=== PATIENT | male | born 1960 | race Caucasian/White ===

== ENCOUNTER 2018-06-06 01:27 | Inpatient (IN) | payer OTHER, MEDICAID ==
[~2018-06-06] VITALS: Ht 172.7 cm; Wt 83.5 kg
[2018-06-06] MEDS ORDERED: BACITRACIN ZINC OINT UDPKT TOP ONE (08:30)
[2018-06-06] MEDS ORDERED: SODIUM CHLORIDE 0.9% 1000ML BAG (SEPSIS BOLUS) IV ONE (08:45)
[2018-06-06 08:48] LABS: HEMATOCRIT. 31.1 % (42.0-52.0); HEMOGLOBIN. 10.1 g/dL (14.0-18.0); MEAN CORPUSCULAR VOLUME 83.2 fL (80.0-94.0); MEAN PLATELET VOLUME 6.1 fl (7.4-10.4); PLATELET 597 x1000/uL (130-400); RED BLOOD CELL COUNT 3.74 mill/uL (4.7-6.1); RED CELL DISTRIBUTION WIDTH 15.3 % (11.6-14.6)
[2018-06-06 08:55] LABS: CHLORIDE 112 mEq/L (98-107)
[2018-06-06 08:56] LABS: INR 1.2
[2018-06-06 09:20] LABS: PLATELET ESTIMATE INCREASED
[2018-06-06 10:44] LABS: CLARITY URINE CLEAR (CLEAR); COLOR URINE YELLOW (YELLOW); KETONES URINE TRACE (NEGATIVE); LEUKOCYTE ESTERASE URINE NEGATIVE (NEGATIVE); NITRITE URINE NEGATIVE (NEGATIVE); OCCULT BLOOD URINE NEGATIVE (NEGATIVE); PH URINE 5.5 (4.5-8.0); PROTEIN URINE NEGATIVE (NEGATIVE); SPECIFIC GRAVITY URINE 1.018 (1.005-1.030)
[2018-06-06] MEDS: VANCOMYCIN 1 G PREMIX 200 ML IV SCH ×2 (10:53→15:00)
[2018-06-06] MEDS ORDERED: METRONIDAZOLE 500 MG PREMIX 100 ML IV ONE (11:15)
[2018-06-06] MEDS ORDERED: GENTAMICIN 80MG PREMIX 100 ML IV ONE (11:15)
[2018-06-06] MEDS ORDERED: DEXTROSE 50% WATER 50ML SYRINGE IV PRN ×2 (13:30)
[2018-06-06] MEDS ORDERED: SODIUM CHLORIDE 0.9% 1,000 ML IV SCH (13:30)
[2018-06-06] MEDS ORDERED: ONDANSETRON HCL 4MG/2ML INJ IV PRN (13:30)
[2018-06-06] MEDS ORDERED: CLONIDINE 0.1MG TABLET PO PRN (13:30)
[2018-06-06] MEDS ORDERED: MAGNESIUM/ALUMINUM HYDROXIDE/SIMETHICONE 30ML UDC PO PRN (13:30)
[2018-06-06] MEDS ORDERED: ACETAMINOPHEN 325MG TABLET PO PRN (13:30)
[2018-06-06] MEDS ORDERED: HYDROCODONE/ACETAMINOPHEN 5/325MG TABLET PO PRN (13:30)
[2018-06-06 14:24] LABS: CREATINE KINASE 569 IU/L (39-308)
[2018-06-06] MEDS: BLOOD SUGAR DIAGNOSTIC STRIP TEST SCH ×2 (17:10→21:00)
[2018-06-06] MEDS: SODIUM CHLORIDE 0.45% 1,000 ML IV SCH (18:04)
[2018-06-06 18:09] VITALS: BP 148/86
[2018-06-06 18:47] VITALS: BP 140/86
[2018-06-06 20:00] VITALS: BP 146/71
[2018-06-06] MEDS: VANCOMYCIN 1250MG in DEXTROSE 5% WATER 250ML IV SCH (20:48)
[2018-06-06] MEDS ORDERED: PIPERACILLIN/TAZOBACTAM 3.375GM/50ML PREMIX IV ONE (22:45)
[2018-06-06 23:12] LABS: BG BASE EXCESS -0.9 mmol/L (-2.0-2.0); BG CARBOXYHEMOGLOBIN 0.3 % (0.5-1.5); BG DEOXYHEMOGLOBIN 6.6 % (0.0-5.0); BG FRACTION INSPIRED OXYGEN 32; BG HCO3 ACT 22.6 mmol/L (22.0-26.0); BG METHEMOGLOBIN 0.2 % (0.0-1.5); BG OXYGEN SATURATION 93.4 % (92.0-98.5); BG OXYHEMOGLOBIN 92.9 % (94.0-97.0); BG PCO2 33.4 mmHg (35.0-45.0); BG PH 7.449 (7.350-7.450); BG SAMPLE SITE LEFT RADIAL; BG TOTAL HEMOGLOBIN 10.2 g/dL (12.0-18.0); BG VENT MODE NASAL CANNULA
[2018-06-07] VITALS (82 sets, daily range): BP systolic 71–215; BP diastolic 29–135
[2018-06-07] MEDS ORDERED: PIPERACILLIN/TAZ 3.375G PREMIX 50 ML IV SCH
[2018-06-07 00:40] LABS: CREATINE KINASE 389 IU/L (39-308)
[2018-06-07] MEDS: DIPHENHYDRAMINE 25MG CAPSULE PO PRN ×2 (05:04→15:10)
[2018-06-07 06:51] LABS: BG BASE EXCESS -6.3 mmol/L (-2.0-2.0); BG CARBOXYHEMOGLOBIN 0.3 % (0.5-1.5); BG DEOXYHEMOGLOBIN 8.4 % (0.0-5.0); BG FRACTION INSPIRED OXYGEN 100; BG HCO3 ACT 22.3 mmol/L (22.0-26.0); BG METHEMOGLOBIN 0.2 % (0.0-1.5); BG OXYGEN SATURATION 91.6 % (92.0-98.5); BG OXYHEMOGLOBIN 91.1 % (94.0-97.0); BG PCO2 59.4 mmHg (35.0-45.0); BG PH 7.192 (7.350-7.450); BG SAMPLE SITE LEFT RADIAL; BG TOTAL HEMOGLOBIN 11.2 g/dL (12.0-18.0); BG VENT MODE MASK - NRB
[2018-06-07 07:01] LABS: BASOPHILS % 0.2 % (0.0-2.0); EOSINOPHILS % 12.3 % (0.0-5.0); HEMOGLOBIN. 10.3 g/dL (14.0-18.0); LYMPHOCYTES % 9.6 % (20.0-50.0); MEAN CORPUSCULAR HEMOGLOBIN 27.3 pg (28.0-32.0); MEAN PLATELET VOLUME 6.3 fl (7.4-10.4); MONOCYTES % 7.8 % (2.0-8.0); NEUTROPHILS % 70.1 % (40.0-76.0); PLATELET 633 x1000/uL (130-400); RED BLOOD CELL COUNT 3.77 mill/uL (4.7-6.1); RED CELL DISTRIBUTION WIDTH 15.6 % (11.6-14.6)
[2018-06-07] MEDS: BLOOD SUGAR DIAGNOSTIC STRIP TEST SCH ×4 (07:10→17:33)
[2018-06-07] MEDS ORDERED: INSULIN LISPRO 100 UNITS/ML SUBCUT SCH (07:40)
[2018-06-07] MEDS ORDERED: ETOMIDATE 2MG/ML 10ML VIAL IV ONE (08:15)
[2018-06-07] MEDS ORDERED: SODIUM CHLORIDE 0.9% 10ML VIAL ONE (08:15)
[2018-06-07] MEDS ORDERED: SUCCINYLCHOLINE CHLORIDE 200MG/10ML IV ONE (08:15)
[2018-06-07] MEDS ORDERED: VECURONIUM BROMIDE 10 MG/VIAL IV ONE (08:15)
[2018-06-07] MEDS ORDERED: IPRATROPIUM/ALBUTEROL 0.5-3(2.5)MG/3ML NEB HHN PRN (08:30)
[2018-06-07] MEDS: SODIUM CHLORIDE 0.45% 1,000 ML IV SCH ×2 (08:34→21:47)
[2018-06-07] MEDS ORDERED: METOPROLOL TARTRATE 5MG/5ML VIAL IV NR (08:38)
[2018-06-07] MEDS: PANTOPRAZOLE SODIUM 40 MG/VIAL IV SCH (09:09)
[2018-06-07] MEDS: PROPOFOL 10MG/ML 100ML 100 ML IV PRN ×4 (09:12→23:01)
[2018-06-07 09:18] LABS: CHLORIDE 113 mEq/L (98-107); PHOSPHORUS 4.3 mg/dL (2.5-4.9)
[2018-06-07 09:26] LABS: BG BASE EXCESS -7.1 mmol/L (-2.0-2.0); BG CARBOXYHEMOGLOBIN 0.2 % (0.5-1.5); BG DEOXYHEMOGLOBIN 8.2 % (0.0-5.0); BG FRACTION INSPIRED OXYGEN 100; BG HCO3 ACT 20.8 mmol/L (22.0-26.0); BG METHEMOGLOBIN 0.3 % (0.0-1.5); BG OXYGEN SATURATION 91.8 % (92.0-98.5); BG OXYHEMOGLOBIN 91.3 % (94.0-97.0); BG PCO2 52.8 mmHg (35.0-45.0); BG PEEP (cmH2O) 0 cmH2O; BG PH 7.214 (7.350-7.450); BG SAMPLE SITE RIGHT RADIAL; BG TIDAL VOLUME(mL) 550 mL; BG TOTAL HEMOGLOBIN 11.2 g/dL (12.0-18.0); BG VENT MODE VENT - A/C; BG VENT RATE 16 set
[2018-06-07] MEDS ORDERED: FUROSEMIDE 40MG/4ML VIAL IVP NR (09:30)
[2018-06-07] MEDS ORDERED: ENOXAPARIN 30MG/0.3ML SYR SUBCUT SCH (09:45)
[2018-06-07 09:55] LABS: METHADONE URINE SCREEN NEGATIVE (NEGATIVE)
[2018-06-07 09:56] LABS: *AMPHETAMINES SCREEN URINE NEGATIVE (NEGATIVE); *BARBITURATES SCREEN URINE NEGATIVE (NEGATIVE); CANNABINOID URINE SCREEN NEGATIVE (NEGATIVE); OPIATES URINE SCREEN NEGATIVE (NEGATIVE); PHENCYCLIDINE URINE SCREEN NEGATIVE (NEGATIVE)
[2018-06-07 09:57] LABS: *BENZODIAZEPINES SCREEN URINE NEGATIVE (NEGATIVE); *COCAINE SCREEN URINE NEGATIVE (NEGATIVE)
[2018-06-07] MEDS: VANCOMYCIN 1250MG in DEXTROSE 5% WATER 250ML IV SCH ×2 (10:43→21:46)
[2018-06-07] MEDS: IPRATROPIUM/ALBUTEROL 0.5-3(2.5)MG/3ML NEB HHN SCH ×3 (11:38→20:48)
[2018-06-07] MEDS: INSULIN LISPRO 100 UNITS/ML SUBCUT SCH ×2 (12:00→17:45)
[2018-06-07] MEDS ORDERED: ENOXAPARIN 100MG/ML SYR SUBCUT SCH ×2 (12:00→21:00)
[2018-06-07] MEDS ORDERED: ENOXAPARIN 80MG/0.8ML SYR SUBCUT NR (12:30)
[2018-06-07] MEDS: LOSARTAN POTASSIUM 50 MG TABLET PO SCH (12:38)
[2018-06-07] MEDS: AMLODIPINE 5MG TABLET PO SCH ×2 (12:39→21:46)
[2018-06-07] MEDS: HYDRALAZINE HCL 25MG TABLET PO SCH ×2 (13:40→21:47)
[2018-06-07] MEDS: AZITHROMYCIN 500 MG TABLET PO SCH (15:10)
[2018-06-07] MEDS ORDERED: IOHEXOL-350 100 ML BOTTLE ONE (15:56)
[2018-06-07] MEDS ORDERED: PERMETHRIN 5% CREAM 60GM TOP NR (16:00)
[2018-06-07] MEDS: PIPERACILLIN/TAZ 3.375G PREMIX 50 ML IV SCH (17:34)
[2018-06-08] VITALS (41 sets, daily range): BP systolic 83–130; BP diastolic 45–89
[2018-06-08] MEDS: IPRATROPIUM/ALBUTEROL 0.5-3(2.5)MG/3ML NEB HHN SCH ×7 (00:29→23:51)
[2018-06-08] MEDS: BLOOD SUGAR DIAGNOSTIC STRIP TEST SCH ×5 (00:31→18:00)
[2018-06-08] MEDS: PIPERACILLIN/TAZ 3.375G PREMIX 50 ML IV SCH ×4 (00:32→19:01)
[2018-06-08 05:31] LABS: CHLORIDE 113 mEq/L (98-107)
[2018-06-08 05:32] LABS: BASOPHILS % 0.3 % (0.0-2.0); EOSINOPHILS % 10.1 % (0.0-5.0); HEMATOCRIT. 28.6 % (42.0-52.0); HEMOGLOBIN. 9.2 g/dL (14.0-18.0); LYMPHOCYTES % 8.9 % (20.0-50.0); MEAN CORPUSCULAR HEMOGLOBIN 26.9 pg (28.0-32.0); MEAN CORPUSCULAR VOLUME 83.6 fL (80.0-94.0); MEAN PLATELET VOLUME 6.4 fl (7.4-10.4); MONOCYTES % 5.8 % (2.0-8.0); NEUTROPHILS % 74.9 % (40.0-76.0); PLATELET 521 x1000/uL (130-400); RED BLOOD CELL COUNT 3.42 mill/uL (4.7-6.1); RED CELL DISTRIBUTION WIDTH 15.5 % (11.6-14.6)
[2018-06-08] MEDS: PROPOFOL 10MG/ML 100ML 100 ML IV PRN (05:38)
[2018-06-08] MEDS: INSULIN LISPRO 100 UNITS/ML SUBCUT SCH ×3 (05:39→12:00)
[2018-06-08] MEDS: HYDRALAZINE HCL 25MG TABLET PO SCH ×3 (05:39→21:30)
[2018-06-08 07:24] LABS: HEPATITIS B SURFACE ANTIGEN NEGATIVE
[2018-06-08 08:51] LABS: BG CARBOXYHEMOGLOBIN 0.3 % (0.5-1.5); BG DEOXYHEMOGLOBIN 4.8 % (0.0-5.0); BG FRACTION INSPIRED OXYGEN 60; BG HCO3 ACT 26.5 mmol/L (22.0-26.0); BG METHEMOGLOBIN 0.1 % (0.0-1.5); BG OXYGEN SATURATION 95.2 % (92.0-98.5); BG OXYHEMOGLOBIN 94.8 % (94.0-97.0); BG PCO2 40.6 mmHg (35.0-45.0); BG PH 7.432 (7.350-7.450); BG PO2 77.3 mmHg (75.0-100.0); BG SAMPLE SITE RIGHT RADIAL; BG TIDAL VOLUME(mL) 550 mL; BG TOTAL HEMOGLOBIN 9.5 g/dL (12.0-18.0); BG VENT MODE VENT - A/C; BG VENT RATE 20 set
[2018-06-08] MEDS: AMLODIPINE 5MG TABLET PO SCH ×2 (09:00→21:30)
[2018-06-08] MEDS: LOSARTAN POTASSIUM 50 MG TABLET PO SCH (09:00)
[2018-06-08] MEDS: ENOXAPARIN 30MG/0.3ML SYR SUBCUT SCH ×2 (10:00→21:28)
[2018-06-08] MEDS: MIDAZOLAM HCL 50 MG in DEXTROSE 5% WATER 40 ML IV PRN ×2 (10:40→21:05)
[2018-06-08] MEDS: FENTANYL CITRATE/PF 500 MCG in SODIUM CHLORIDE 0.9% 40 ML IV PRN (10:42)
[2018-06-08] MEDS: PANTOPRAZOLE SODIUM 40 MG/VIAL IV SCH (10:43)
[2018-06-08] MEDS: AZITHROMYCIN 500 MG TABLET PO SCH (10:43)
[2018-06-08] MEDS: VANCOMYCIN 1250MG in DEXTROSE 5% WATER 250ML IV SCH ×2 (11:28→21:30)
[2018-06-09] VITALS (80 sets, daily range): BP systolic 75–146; BP diastolic 36–90
[2018-06-09] MEDS: BLOOD SUGAR DIAGNOSTIC STRIP TEST SCH ×4 (00:08→18:00)
[2018-06-09] MEDS: PIPERACILLIN/TAZ 3.375G PREMIX 50 ML IV SCH ×4 (00:15→18:14)
[2018-06-09] MEDS: FENTANYL CITRATE/PF 500 MCG in SODIUM CHLORIDE 0.9% 40 ML IV PRN ×3 (00:22→21:20)
[2018-06-09] MEDS: IPRATROPIUM/ALBUTEROL 0.5-3(2.5)MG/3ML NEB HHN SCH ×5 (03:59→20:14)
[2018-06-09] MEDS: HYDRALAZINE HCL 25MG TABLET PO SCH ×3 (06:00→22:00)
[2018-06-09] MEDS: INSULIN LISPRO 100 UNITS/ML SUBCUT SCH ×4 (06:00→18:00)
[2018-06-09 07:47] LABS: BG BASE EXCESS -0.2 mmol/L (-2.0-2.0); BG CARBOXYHEMOGLOBIN 0.3 % (0.5-1.5); BG DEOXYHEMOGLOBIN 1.9 % (0.0-5.0); BG FRACTION INSPIRED OXYGEN 60; BG HCO3 ACT 24.4 mmol/L (22.0-26.0); BG METHEMOGLOBIN 0.3 % (0.0-1.5); BG OXYGEN SATURATION 98.1 % (92.0-98.5); BG OXYHEMOGLOBIN 97.5 % (94.0-97.0); BG PH 7.404 (7.350-7.450); BG PO2 120.4 mmHg (75.0-100.0); BG SAMPLE SITE RIGHT RADIAL; BG TIDAL VOLUME(mL) 550 mL; BG TOTAL HEMOGLOBIN 10.1 g/dL (12.0-18.0); BG VENT MODE VENT - A/C; BG VENT RATE 20 set
[2018-06-09 09:06] LABS: HIV SCREEN 4G Non Reactive (Non Reactive)
[2018-06-09 09:11] LABS: BASOPHILS % 0.3 % (0.0-2.0); EOSINOPHILS % 14.5 % (0.0-5.0); HEMATOCRIT. 27.9 % (42.0-52.0); HEMOGLOBIN. 9.1 g/dL (14.0-18.0); LYMPHOCYTES % 9.9 % (20.0-50.0); MEAN CORPUSCULAR HEMOGLOBIN 27.3 pg (28.0-32.0); MEAN CORPUSCULAR VOLUME 83.9 fL (80.0-94.0); MEAN PLATELET VOLUME 6.9 fl (7.4-10.4); MONOCYTES % 7.1 % (2.0-8.0); NEUTROPHILS % 68.2 % (40.0-76.0); PLATELET 549 x1000/uL (130-400); RED BLOOD CELL COUNT 3.32 mill/uL (4.7-6.1); RED CELL DISTRIBUTION WIDTH 15.8 % (11.6-14.6)
[2018-06-09 09:24] LABS: CHLORIDE 114 mEq/L (98-107)
[2018-06-09] MEDS: PANTOPRAZOLE SODIUM 40 MG/VIAL IV SCH (09:49)
[2018-06-09] MEDS: AZITHROMYCIN 500 MG TABLET PO SCH (09:50)
[2018-06-09] MEDS: LOSARTAN POTASSIUM 50 MG TABLET PO SCH (09:50)
[2018-06-09] MEDS: AMLODIPINE 5MG TABLET PO SCH ×2 (09:50→21:00)
[2018-06-09] MEDS: ENOXAPARIN 30MG/0.3ML SYR SUBCUT SCH ×2 (09:51→22:09)
[2018-06-09] MEDS: VANCOMYCIN 1250MG in DEXTROSE 5% WATER 250ML IV SCH (09:54)
[2018-06-09] MEDS: MIDAZOLAM HCL 50 MG in DEXTROSE 5% WATER 40 ML IV PRN ×2 (12:10→21:19)
[2018-06-09] MEDS: PANTOT AC/MIN OIL/PET HY-PHL OINT (AQUAPHOR) TOP SCH (13:15)
[2018-06-09 15:10] LABS: ANTI-NUCLEAR ANTIBODIES DIRECT Negative (Negative)
[2018-06-10] VITALS (67 sets, daily range): BP systolic 95–174; BP diastolic 45–83
[2018-06-10] MEDS: BLOOD SUGAR DIAGNOSTIC STRIP TEST SCH ×4 (00:28→17:19)
[2018-06-10] MEDS: PIPERACILLIN/TAZ 3.375G PREMIX 50 ML IV SCH ×5 (00:37→23:45)
[2018-06-10] MEDS: IPRATROPIUM/ALBUTEROL 0.5-3(2.5)MG/3ML NEB HHN SCH ×7 (00:51→23:45)
[2018-06-10] MEDS: MIDAZOLAM HCL 50 MG in DEXTROSE 5% WATER 40 ML IV PRN ×4 (03:49→17:20)
[2018-06-10 05:38] LABS: HEMATOCRIT. 30.4 % (42.0-52.0); HEMOGLOBIN. 9.6 g/dL (14.0-18.0); MEAN CORPUSCULAR HEMOGLOBIN 26.8 pg (28.0-32.0); MEAN CORPUSCULAR VOLUME 84.4 fL (80.0-94.0); MEAN PLATELET VOLUME 7.1 fl (7.4-10.4); PLATELET 528 x1000/uL (130-400); RED CELL DISTRIBUTION WIDTH 15.8 % (11.6-14.6)
[2018-06-10 05:44] LABS: CHLORIDE 115 mEq/L (98-107)
[2018-06-10] MEDS: INSULIN LISPRO 100 UNITS/ML SUBCUT SCH ×4 (06:00→17:19)
[2018-06-10] MEDS: HYDRALAZINE HCL 25MG TABLET PO SCH ×3 (06:00→21:35)
[2018-06-10] MEDS: FENTANYL CITRATE/PF 500 MCG in SODIUM CHLORIDE 0.9% 40 ML IV PRN ×3 (06:43→23:00)
[2018-06-10] MEDS: PANTOPRAZOLE SODIUM 40 MG/VIAL IV SCH (08:58)
[2018-06-10] MEDS: AMLODIPINE 5MG TABLET PO SCH ×2 (08:58→21:00)
[2018-06-10] MEDS: AZITHROMYCIN 500 MG TABLET PO SCH (08:58)
[2018-06-10] MEDS: LOSARTAN POTASSIUM 50 MG TABLET PO SCH (08:58)
[2018-06-10] MEDS: ENOXAPARIN 30MG/0.3ML SYR SUBCUT SCH (08:58)
[2018-06-10] MEDS: PANTOT AC/MIN OIL/PET HY-PHL OINT (AQUAPHOR) TOP SCH (08:59)
[2018-06-10 09:06] LABS: BG BASE EXCESS 0.5 mmol/L (-2.0-2.0); BG CARBOXYHEMOGLOBIN 0.3 % (0.5-1.5); BG DEOXYHEMOGLOBIN 3.9 % (0.0-5.0); BG FRACTION INSPIRED OXYGEN 60; BG METHEMOGLOBIN 0.3 % (0.0-1.5); BG OXYGEN SATURATION 96.1 % (92.0-98.5); BG OXYHEMOGLOBIN 95.5 % (94.0-97.0); BG PCO2 39.9 mmHg (35.0-45.0); BG PH 7.415 (7.350-7.450); BG PO2 84.4 mmHg (75.0-100.0); BG SAMPLE SITE RIGHT RADIAL; BG TIDAL VOLUME(mL) 550 mL; BG TOTAL HEMOGLOBIN 9.9 g/dL (12.0-18.0); BG VENT MODE VENT - A/C; BG VENT RATE 18 set
[2018-06-10 10:14] LABS: NUCLEATED RED BLOOD CELLS 1 /100 WBC
[2018-06-10 10:15] LABS: PLATELET ESTIMATE INCREASED
[2018-06-10 17:09] LABS: ANTI-MYELOPEROXIDASE AB < 9.0 U/mL (0.0-9.0); ANTI-PROTEINASE 3 ABS < 3.5 U/mL (0.0-3.5)
[2018-06-11] VITALS (65 sets, daily range): BP systolic 97–124; BP diastolic 47–80
[2018-06-11] MEDS: MIDAZOLAM HCL 50 MG in DEXTROSE 5% WATER 40 ML IV PRN ×5 (01:11→22:34)
[2018-06-11] MEDS: IPRATROPIUM/ALBUTEROL 0.5-3(2.5)MG/3ML NEB HHN SCH ×5 (03:59→20:31)
[2018-06-11] MEDS: PIPERACILLIN/TAZ 3.375G PREMIX 50 ML IV SCH ×3 (05:42→17:44)
[2018-06-11] MEDS: FENTANYL CITRATE/PF 500 MCG in SODIUM CHLORIDE 0.9% 40 ML IV PRN ×3 (05:43→18:02)
[2018-06-11] MEDS: HYDRALAZINE HCL 25MG TABLET PO SCH ×3 (05:44→21:31)
[2018-06-11 05:48] LABS: HEMATOCRIT. 30.2 % (42.0-52.0); HEMOGLOBIN. 9.8 g/dL (14.0-18.0); MEAN CORPUSCULAR HEMOGLOBIN 26.9 pg (28.0-32.0); MEAN CORPUSCULAR VOLUME 83.3 fL (80.0-94.0); MEAN PLATELET VOLUME 6.3 fl (7.4-10.4); PLATELET 554 x1000/uL (130-400); RED BLOOD CELL COUNT 3.63 mill/uL (4.7-6.1); RED CELL DISTRIBUTION WIDTH 15.6 % (11.6-14.6)
[2018-06-11 05:56] LABS: CHLORIDE 111 mEq/L (98-107)
[2018-06-11] MEDS: BLOOD SUGAR DIAGNOSTIC STRIP TEST SCH ×4 (06:00→17:44)
[2018-06-11] MEDS: INSULIN LISPRO 100 UNITS/ML SUBCUT SCH ×4 (06:00→17:44)
[2018-06-11 08:29] LABS: BG BASE EXCESS 2.3 mmol/L (-2.0-2.0); BG CARBOXYHEMOGLOBIN 0.3 % (0.5-1.5); BG DEOXYHEMOGLOBIN 5.5 % (0.0-5.0); BG FRACTION INSPIRED OXYGEN 40; BG HCO3 ACT 27.3 mmol/L (22.0-26.0); BG METHEMOGLOBIN 0.4 % (0.0-1.5); BG OXYGEN SATURATION 94.5 % (92.0-98.5); BG OXYHEMOGLOBIN 93.8 % (94.0-97.0); BG PCO2 43.9 mmHg (35.0-45.0); BG PH 7.411 (7.350-7.450); BG PO2 74.8 mmHg (75.0-100.0); BG SAMPLE SITE RIGHT RADIAL; BG TIDAL VOLUME(mL) 550 mL; BG TOTAL HEMOGLOBIN 10.9 g/dL (12.0-18.0); BG VENT MODE VENT - A/C; BG VENT RATE 18 set
[2018-06-11] MEDS: PANTOT AC/MIN OIL/PET HY-PHL OINT (AQUAPHOR) TOP SCH (08:42)
[2018-06-11] MEDS: ENOXAPARIN 40MG/0.4ML SYR SUBCUT SCH (08:42)
[2018-06-11] MEDS: PANTOPRAZOLE SODIUM 40 MG/VIAL IV SCH (08:42)
[2018-06-11] MEDS: LOSARTAN POTASSIUM 50 MG TABLET PO SCH (08:43)
[2018-06-11] MEDS: AZITHROMYCIN 500 MG TABLET PO SCH (08:43)
[2018-06-11] MEDS: AMLODIPINE 5MG TABLET PO SCH ×2 (08:43→21:00)
[2018-06-11] MEDS: DIPHENHYDRAMINE 25MG CAPSULE PO PRN (10:54)
[2018-06-11 14:12] LABS: PLATELET ESTIMATE INCREASED
[2018-06-12] VITALS (53 sets, daily range): BP systolic 83–136; BP diastolic 49–104
[2018-06-12] MEDS: IPRATROPIUM/ALBUTEROL 0.5-3(2.5)MG/3ML NEB HHN SCH ×6 (00:17→21:08)
[2018-06-12] MEDS: PIPERACILLIN/TAZ 3.375G PREMIX 50 ML IV SCH ×4 (00:22→16:57)
[2018-06-12] MEDS: FENTANYL CITRATE/PF 500 MCG in SODIUM CHLORIDE 0.9% 40 ML IV PRN ×2 (00:23→05:38)
[2018-06-12] MEDS: BLOOD SUGAR DIAGNOSTIC STRIP TEST SCH ×4 (00:24→17:02)
[2018-06-12] MEDS: MIDAZOLAM HCL 50 MG in DEXTROSE 5% WATER 40 ML IV PRN (04:26)
[2018-06-12] MEDS: INSULIN LISPRO 100 UNITS/ML SUBCUT SCH ×4 (06:00→17:02)
[2018-06-12] MEDS: HYDRALAZINE HCL 25MG TABLET PO SCH ×3 (06:00→22:00)
[2018-06-12 08:05] LABS: CHLORIDE 107 mEq/L (98-107); HEMATOCRIT. 32.2 % (42.0-52.0); HEMOGLOBIN. 10.4 g/dL (14.0-18.0); MEAN CORPUSCULAR HEMOGLOBIN 26.8 pg (28.0-32.0); MEAN CORPUSCULAR VOLUME 83.1 fL (80.0-94.0); MEAN PLATELET VOLUME 6.3 fl (7.4-10.4); PLATELET 563 x1000/uL (130-400); RED BLOOD CELL COUNT 3.87 mill/uL (4.7-6.1); RED CELL DISTRIBUTION WIDTH 15.8 % (11.6-14.6)
[2018-06-12] MEDS: ENOXAPARIN 40MG/0.4ML SYR SUBCUT SCH (08:09)
[2018-06-12] MEDS: LOSARTAN POTASSIUM 50 MG TABLET PO SCH (08:09)
[2018-06-12] MEDS: AMLODIPINE 5MG TABLET PO SCH ×2 (08:09→21:00)
[2018-06-12] MEDS: PANTOPRAZOLE SODIUM 40 MG/VIAL IV SCH (08:09)
[2018-06-12] MEDS: PANTOT AC/MIN OIL/PET HY-PHL OINT (AQUAPHOR) TOP SCH (08:10)
[2018-06-12 08:48] LABS: BG BASE EXCESS 3.5 mmol/L (-2.0-2.0); BG CARBOXYHEMOGLOBIN 0.3 % (0.5-1.5); BG DEOXYHEMOGLOBIN 3.9 % (0.0-5.0); BG FRACTION INSPIRED OXYGEN 40; BG HCO3 ACT 28.8 mmol/L (22.0-26.0); BG METHEMOGLOBIN 0.1 % (0.0-1.5); BG OXYGEN SATURATION 96.1 % (92.0-98.5); BG OXYHEMOGLOBIN 95.7 % (94.0-97.0); BG PCO2 47.3 mmHg (35.0-45.0); BG PH 7.403 (7.350-7.450); BG PO2 85.4 mmHg (75.0-100.0); BG SAMPLE SITE RIGHT RADIAL; BG TIDAL VOLUME(mL) 550 mL; BG TOTAL HEMOGLOBIN 10.9 g/dL (12.0-18.0); BG VENT MODE VENT - A/C; BG VENT RATE 14 set
[2018-06-12 11:03] LABS: BG BASE EXCESS 2.3 mmol/L (-2.0-2.0); BG CARBOXYHEMOGLOBIN 0.3 % (0.5-1.5); BG DEOXYHEMOGLOBIN 5.5 % (0.0-5.0); BG FRACTION INSPIRED OXYGEN 40; BG HCO3 ACT 27.3 mmol/L (22.0-26.0); BG METHEMOGLOBIN 0.4 % (0.0-1.5); BG OXYGEN SATURATION 94.5 % (92.0-98.5); BG OXYHEMOGLOBIN 93.8 % (94.0-97.0); BG PCO2 43.7 mmHg (35.0-45.0); BG PH 7.413 (7.350-7.450); BG PO2 75.1 mmHg (75.0-100.0); BG SAMPLE SITE RIGHT RADIAL; BG TOTAL HEMOGLOBIN 10.9 g/dL (12.0-18.0); BG VENT MODE VENT - CPAP
[2018-06-12 12:50] LABS: PLATELET ESTIMATE INCREASED
[2018-06-12] MEDS ORDERED: LIDOCAINE HCL 1% 20ML VIAL (Pyxis) INJ ONE (12:59)
[2018-06-12 14:09] LABS: ATYPICAL P-ANCA <1:20 titer (Neg:<1:20); CYTOPLASMIC C-ANCA <1:20 titer (Neg:<1:20); PERINUCLEAR P-ANCA <1:20 titer (Neg:<1:20)
[2018-06-13] VITALS (42 sets, daily range): BP systolic 104–132; BP diastolic 51–72
[2018-06-13] MEDS: IPRATROPIUM/ALBUTEROL 0.5-3(2.5)MG/3ML NEB HHN SCH ×6 (00:12→20:25)
[2018-06-13] MEDS: BLOOD SUGAR DIAGNOSTIC STRIP TEST SCH ×4 (00:18→17:36)
[2018-06-13] MEDS: PIPERACILLIN/TAZ 3.375G PREMIX 50 ML IV SCH ×4 (00:20→17:29)
[2018-06-13 05:19] LABS: BASOPHILS % 0.6 % (0.0-2.0); HEMATOCRIT. 33.7 % (42.0-52.0); LYMPHOCYTES % 13.4 % (20.0-50.0); MEAN CORPUSCULAR HEMOGLOBIN 26.9 pg (28.0-32.0); MEAN CORPUSCULAR VOLUME 82.4 fL (80.0-94.0); MEAN PLATELET VOLUME 6.6 fl (7.4-10.4); MONOCYTES % 8.4 % (2.0-8.0); NEUTROPHILS % 69.6 % (40.0-76.0); PLATELET 582 x1000/uL (130-400); RED BLOOD CELL COUNT 4.09 mill/uL (4.7-6.1); RED CELL DISTRIBUTION WIDTH 15.6 % (11.6-14.6)
[2018-06-13 05:34] LABS: CHLORIDE 106 mEq/L (98-107)
[2018-06-13] MEDS: HYDRALAZINE HCL 25MG TABLET PO SCH ×3 (06:00→21:54)
[2018-06-13] MEDS: INSULIN LISPRO 100 UNITS/ML SUBCUT SCH ×4 (06:00→17:36)
[2018-06-13] MEDS: PANTOPRAZOLE SODIUM 40 MG/VIAL IV SCH (08:07)
[2018-06-13] MEDS: ENOXAPARIN 40MG/0.4ML SYR SUBCUT SCH (08:07)
[2018-06-13] MEDS: PANTOT AC/MIN OIL/PET HY-PHL OINT (AQUAPHOR) TOP SCH (08:08)
[2018-06-13] MEDS: AMLODIPINE 5MG TABLET PO SCH ×2 (09:00→21:54)
[2018-06-13] MEDS: LOSARTAN POTASSIUM 50 MG TABLET PO SCH (09:00)
[2018-06-14] VITALS (22 sets, daily range): BP systolic 93–139; BP diastolic 53–76
[2018-06-14] MEDS: BLOOD SUGAR DIAGNOSTIC STRIP TEST SCH ×3 (00:21→21:59)
[2018-06-14] MEDS: IPRATROPIUM/ALBUTEROL 0.5-3(2.5)MG/3ML NEB HHN SCH ×5 (01:20→20:29)
[2018-06-14] MEDS: HYDRALAZINE HCL 25MG TABLET PO SCH ×3 (06:00→23:27)
[2018-06-14] MEDS: INSULIN LISPRO 100 UNITS/ML SUBCUT SCH ×3 (06:00→21:59)
[2018-06-14 06:11] LABS: BASOPHILS % 0.7 % (0.0-2.0); EOSINOPHILS % 6.5 % (0.0-5.0); HEMATOCRIT. 32.2 % (42.0-52.0); HEMOGLOBIN. 10.7 g/dL (14.0-18.0); LYMPHOCYTES % 19.5 % (20.0-50.0); MEAN CORPUSCULAR HEMOGLOBIN 27.2 pg (28.0-32.0); MEAN CORPUSCULAR VOLUME 82.2 fL (80.0-94.0); MEAN PLATELET VOLUME 6.6 fl (7.4-10.4); MONOCYTES % 11.7 % (2.0-8.0); NEUTROPHILS % 61.6 % (40.0-76.0); PLATELET 587 x1000/uL (130-400); RED BLOOD CELL COUNT 3.92 mill/uL (4.7-6.1); RED CELL DISTRIBUTION WIDTH 15.3 % (11.6-14.6)
[2018-06-14 06:17] LABS: CHLORIDE 107 mEq/L (98-107)
[2018-06-14] MEDS: AMLODIPINE 5MG TABLET PO SCH (09:32)
[2018-06-14] MEDS: LOSARTAN POTASSIUM 50 MG TABLET PO SCH (09:32)
[2018-06-14] MEDS: PANTOPRAZOLE SODIUM 40 MG/VIAL IV SCH (09:33)
[2018-06-14] MEDS: ENOXAPARIN 40MG/0.4ML SYR SUBCUT SCH (09:33)
[2018-06-14] MEDS: PANTOT AC/MIN OIL/PET HY-PHL OINT (AQUAPHOR) TOP SCH (09:41)
[2018-06-14] MEDS: CARVEDILOL 3.125 MG TABLET PO SCH ×2 (11:15→21:55)
[2018-06-14] MEDS: AMLODIPINE 2.5MG TABLET PO SCH (21:56)
[2018-06-14] MEDS: DIPHENHYDRAMINE 25MG CAPSULE PO PRN (23:27)
[2018-06-15] VITALS (12 sets, daily range): BP systolic 127–150; BP diastolic 67–92
[2018-06-15] MEDS: IPRATROPIUM/ALBUTEROL 0.5-3(2.5)MG/3ML NEB HHN SCH ×5 (00:35→14:54)
[2018-06-15] MEDS: BLOOD SUGAR DIAGNOSTIC STRIP TEST SCH (06:45)
[2018-06-15 06:47] LABS: BASOPHILS % 0.7 % (0.0-2.0); EOSINOPHILS % 4.5 % (0.0-5.0); HEMATOCRIT. 35.6 % (42.0-52.0); HEMOGLOBIN. 11.5 g/dL (14.0-18.0); LYMPHOCYTES % 17.9 % (20.0-50.0); MEAN CORPUSCULAR HEMOGLOBIN 26.9 pg (28.0-32.0); MEAN CORPUSCULAR VOLUME 83.1 fL (80.0-94.0); MEAN PLATELET VOLUME 6.7 fl (7.4-10.4); MONOCYTES % 12.6 % (2.0-8.0); NEUTROPHILS % 64.3 % (40.0-76.0); PLATELET 606 x1000/uL (130-400); RED BLOOD CELL COUNT 4.28 mill/uL (4.7-6.1); RED CELL DISTRIBUTION WIDTH 15.4 % (11.6-14.6)
[2018-06-15] MEDS: INSULIN LISPRO 100 UNITS/ML SUBCUT SCH (06:50)
[2018-06-15 07:26] LABS: CHLORIDE 109 mEq/L (98-107)
[2018-06-15] MEDS: PANTOPRAZOLE SODIUM 40 MG/VIAL IV SCH (09:00)
[2018-06-15] MEDS: PANTOT AC/MIN OIL/PET HY-PHL OINT (AQUAPHOR) TOP SCH (09:00)
[2018-06-15] MEDS: ENOXAPARIN 40MG/0.4ML SYR SUBCUT SCH (09:17)
[2018-06-15] MEDS: CARVEDILOL 3.125 MG TABLET PO SCH (09:18)
[2018-06-15] MEDS: DIPHENHYDRAMINE 25MG CAPSULE PO PRN (09:18)
[2018-06-15] MEDS: HYDRALAZINE HCL 25MG TABLET PO SCH ×2 (09:18→15:26)
[2018-06-15] MEDS: AMLODIPINE 2.5MG TABLET PO SCH (09:18)
[2018-06-15] MEDS: LOSARTAN POTASSIUM 50 MG TABLET PO SCH (09:20)
== END 2018-06-15 19:15 | disposition short-term general hospital (02) | DRG 870 ==
LOC: ER 01:27 → 8WST 11:47 → EDBEDREQTM 11:54 → EDBEDREQ 11:54 → ENRESERV 14:12 → 8WST 17:08 → CVICU 06-07 07:30 → 3WST 06-13 23:00
PROVIDERS: ADMIT Family Medicine Adult Medicine; ATTEND Family Medicine Adult Medicine
PROC: 5A1955Z Respiratory Ventilation, Greater than 96 Consecutive Hours (ICD-10-PCS; principal; 2018-06-07)
PROC: 0BH17EZ Insertion of Endotracheal Airway into Trachea, Via Natural or Artificial Opening (ICD-10-PCS; 2018-06-07)
PROC: 02HV33Z Insertion of Infusion Device into Superior Vena Cava, Percutaneous Approach (ICD-10-PCS; 2018-06-07)
PROC: B548ZZA Ultrasonography of Superior Vena Cava, Guidance (ICD-10-PCS; 2018-06-07)
DX: A41.9 Sepsis, unspecified organism (principal); J96.00 Acute respiratory failure, unspecified whether with hypoxia or hypercapnia; E43 Unspecified severe protein-calorie malnutrition; L89.113 Pressure ulcer of right upper back, stage 3; I50.23 Acute on chronic systolic (congestive) heart failure; L89.143 Pressure ulcer of left lower back, stage 3; L89.133 Pressure ulcer of right lower back, stage 3; J69.0 Pneumonitis due to inhalation of food and vomit; L03.90 Cellulitis, unspecified; E87.2 Acidosis; I42.9 Cardiomyopathy, unspecified; I16.0 Hypertensive urgency; D64.9 Anemia, unspecified; E11.65 Type 2 diabetes mellitus with hyperglycemia; L85.3 Xerosis cutis; R65.20 Severe sepsis without septic shock; D72.1 Eosinophilia; I11.0 Hypertensive heart disease with heart failure; E78.1 Pure hyperglyceridemia; I34.0 Nonrheumatic mitral (valve) insufficiency; I27.20 Pulmonary hypertension, unspecified; J43.9 Emphysema, unspecified; S90.415A Abrasion, left lesser toe(s), initial encounter; S90.414A Abrasion, right lesser toe(s), initial encounter; X58.XXXA Exposure to other specified factors, initial encounter; Y93.89 Activity, other specified; Y92.89 Other specified places as the place of occurrence of the external cause; Y99.8 Other external cause status; L30.9 Dermatitis, unspecified; Z59.0 Homelessness; Z78.1 Physical restraint status; Z93.1 Gastrostomy status
CPT/HCPCS: 36415; 36569; 36600; 71045; 71275; 76937; 80048; 80202; 80305; 82040; 82140; 82375; 82550; 82805; 82962; 83036; 83520; 83605; 83735; 83880; 84100; 84134; 84145; 84443; 84478; 84484; 85379; 86038; 86256; 86803; 87070; 87340; 87389; 87449; 92610; 93005; 93306; 93970; 94003; 94640; 96365; 96366; 97116; 97162; 97166; 99285; C1725; C1893; C9113; J0330; J1580; J1650; J1940; J2250; J2543; J2704; J3010; J3370; J3490; J7030; J7040; J7050; J7060; J7620; Q0163; Q9967; A4315

== ENCOUNTER 2021-12-14 12:32 | Inpatient (IN) | payer MEDICARE, MEDICAID ==
[~2021-12-14] VITALS: Ht 180.3 cm; Wt 91.2 kg
[2021-12-14 14:38] LABS: HEMATOCRIT. 31.8 % (42.0-52.0); HEMOGLOBIN. 9.9 g/dL (14.0-18.0); MEAN CORPUSCULAR HEMOGLOBIN 26.3 pg (28.0-32.0); MEAN CORPUSCULAR VOLUME 84.6 fL (80.0-94.0); MEAN PLATELET VOLUME 6.4 fl (7.4-10.4); PLATELET 584 x1000/uL (130-400); RED BLOOD CELL COUNT 3.76 mill/uL (4.7-6.1); RED CELL DISTRIBUTION WIDTH 16.8 % (11.6-14.6)
[2021-12-14 14:45] LABS: CHLORIDE 112 mEq/L (98-107)
[2021-12-14 14:54] LABS: ETHANOL BLOOD < 10 mg/dL
[2021-12-14 15:43] LABS: PLATELET ESTIMATE INCREASED
[2021-12-14] MEDS ORDERED: AZITHROMYCIN 500MG/250ML 250 ML IV ONE (15:45)
[2021-12-14] MEDS ORDERED: CEFTRIAXONE 1 G PREMIX 50 ML IV ONE (15:45)
[2021-12-14] MEDS ORDERED: IPRATROPIUM/ALBUTEROL 0.5-3(2.5)MG/3ML NEB NEB PRN (16:00)
[2021-12-14] MEDS ORDERED: KETOROLAC 15MG/ML VIAL IV PRN (16:00)
[2021-12-14] MEDS ORDERED: GUAIFENESIN 200MG/10ML SUGAR FREE UDC PO PRN (16:00)
[2021-12-14] MEDS ORDERED: DOCUSATE SODIUM 100MG CAPSULE PO PRN (16:00)
[2021-12-14] MEDS ORDERED: ACETAMINOPHEN 325MG TABLET PO PRN ×2 (16:00)
[2021-12-14] MEDS ORDERED: NITROGLYCERIN 0.4MG TABLET SL SL PRN (16:00)
[2021-12-14] MEDS ORDERED: ONDANSETRON HCL 4MG/2ML INJ IV PRN (16:00)
[2021-12-14] MEDS ORDERED: CLONIDINE 0.1MG TABLET PO PRN (16:00)
[2021-12-14] MEDS ORDERED: PERMETHRIN 5% CREAM 60GM TOP ONE (16:30)
[2021-12-14] MEDS: GUAIFENESIN/DM 600MG/30MG ER TAB 12HR PO SCH (16:48)
[2021-12-14 17:21] LABS: T4 FREE 0.87 ng/dL (0.76-1.46)
[2021-12-14] MEDS ORDERED: PIPERONYL/PYRETHRINS (RID) 120 ML SHAMPOO TOP NR ×2 (17:30→21:00)
[2021-12-14 17:45] VITALS: BP 123/81
[2021-12-14 18:00] VITALS: BP 123/81
[2021-12-14] MEDS: CEFTRIAXONE 1,000 MG in DEXTROSE 5% WATER 50 ML IV SCH (18:56)
[2021-12-14 19:36] LABS: VITAMIN B12 SERUM >2000 pg/mL pg/mL (211-911)
[2021-12-14 20:00] VITALS: BP 143/60
[2021-12-14] MEDS ORDERED: PERMETHRIN 5% CREAM 60GM TOP NR (21:00)
[2021-12-14] MEDS: AZITHROMYCIN 500 MG in DEXT 5% WATER 250 ML IV SCH (21:16)
[2021-12-14] MEDS: ENOXAPARIN 40MG/0.4ML SYR SUBCUT SCH (21:17)
[2021-12-14] MEDS: FAMOTIDINE 20MG TABLET PO SCH (21:17)
[2021-12-15] VITALS: BP 118/69
[2021-12-15] MEDS: GUAIFENESIN/DM 600MG/30MG ER TAB 12HR PO SCH ×2 (03:46→16:00)
[2021-12-15 04:00] VITALS: BP 120/73
[2021-12-15 08:00] VITALS: BP 134/65
[2021-12-15] MEDS: FAMOTIDINE 20MG TABLET PO SCH ×2 (10:09→21:49)
[2021-12-15 12:00] VITALS: BP 116/61
[2021-12-15] MEDS ORDERED: PIPERONYL/PYRETHRINS (RID) 120 ML SHAMPOO TOP NR (13:30)
[2021-12-15 16:00] VITALS: BP_SYST 137; BP_SYST 186; BP_DIAS 109; BP_DIAS 63
[2021-12-15] MEDS: CEFTRIAXONE 1,000 MG in DEXTROSE 5% WATER 50 ML IV SCH (17:57)
[2021-12-15] MEDS: ENOXAPARIN 40MG/0.4ML SYR SUBCUT SCH (17:58)
[2021-12-15 20:00] VITALS: BP 99/69
[2021-12-15] MEDS: AZITHROMYCIN 500 MG in DEXT 5% WATER 250 ML IV SCH (21:49)
[2021-12-16] VITALS: BP_SYST 103; BP_SYST 123; BP_DIAS 58; BP_DIAS 77
[2021-12-16 04:00] VITALS: BP 155/78
[2021-12-16] MEDS: GUAIFENESIN/DM 600MG/30MG ER TAB 12HR PO SCH ×2 (04:00→18:48)
[2021-12-16 08:00] VITALS: BP 118/61
[2021-12-16] MEDS: FAMOTIDINE 20MG TABLET PO SCH ×2 (10:51→21:10)
[2021-12-16 12:00] VITALS: BP 141/66
[2021-12-16 16:00] VITALS: BP 140/62
[2021-12-16] MEDS: AZITHROMYCIN 500MG in DEXTROSE 5% WATER 250ML IV SCH (18:48)
[2021-12-16] MEDS: CEFTRIAXONE 1,000 MG in DEXTROSE 5% WATER 50 ML IV SCH (18:49)
[2021-12-16] MEDS: ENOXAPARIN 40MG/0.4ML SYR SUBCUT SCH (18:51)
[2021-12-16 20:00] VITALS: BP 125/73
[2021-12-16] MEDS: ZOLPIDEM TARTRATE 5MG TABLET PO PRN (21:09)
[2021-12-17] VITALS: BP 115/57
[2021-12-17 04:00] VITALS: BP 161/90
[2021-12-17] MEDS: GUAIFENESIN/DM 600MG/30MG ER TAB 12HR PO SCH ×2 (05:06→16:00)
[2021-12-17 08:00] VITALS: BP 156/93
[2021-12-17] MEDS: FAMOTIDINE 20MG TABLET PO SCH ×2 (11:50→22:25)
[2021-12-17] MEDS: MAGNESIUM/ALUMINUM HYDROXIDE/SIMETHICONE 30ML UDC PO PRN (11:54)
[2021-12-17 12:00] VITALS: BP 149/79
[2021-12-17 16:00] VITALS: BP 135/95
[2021-12-17] MEDS: CEFTRIAXONE 1,000 MG in DEXTROSE 5% WATER 50 ML IV SCH (17:46)
[2021-12-17] MEDS: ENOXAPARIN 40MG/0.4ML SYR SUBCUT SCH (17:46)
[2021-12-17] MEDS: AZITHROMYCIN 500MG in DEXTROSE 5% WATER 250ML IV SCH (17:47)
[2021-12-17 20:00] VITALS: BP 133/71
[2021-12-17] MEDS: ZOLPIDEM TARTRATE 5MG TABLET PO PRN (22:25)
[2021-12-18 04:00] VITALS: BP 117/62
[2021-12-18] MEDS: GUAIFENESIN/DM 600MG/30MG ER TAB 12HR PO SCH ×2 (06:13→16:00)
[2021-12-18] MEDS: FAMOTIDINE 20MG TABLET PO SCH ×2 (09:00→22:08)
[2021-12-18] MEDS: MAGNESIUM/ALUMINUM HYDROXIDE/SIMETHICONE 30ML UDC PO PRN (10:45)
[2021-12-18 12:00] VITALS: BP 137/89
[2021-12-18 16:00] VITALS: BP 128/75
[2021-12-18] MEDS: CEFTRIAXONE 1,000 MG in DEXTROSE 5% WATER 50 ML IV SCH (17:20)
[2021-12-18] MEDS: ENOXAPARIN 40MG/0.4ML SYR SUBCUT SCH (17:21)
[2021-12-18] MEDS ORDERED: AZITHROMYCIN 500 MG TABLET PO SCH (18:00)
[2021-12-18 20:00] VITALS: BP 100/62
[2021-12-18 20:42] VITALS: BP 128/75
[2021-12-19] VITALS (7 sets, daily range): BP systolic 103–136; BP diastolic 65–91
[2021-12-19] MEDS: GUAIFENESIN/DM 600MG/30MG ER TAB 12HR PO SCH ×2 (03:19→16:00)
[2021-12-19] MEDS: FAMOTIDINE 20MG TABLET PO SCH ×2 (09:17→20:59)
[2021-12-19] MEDS: ENOXAPARIN 40MG/0.4ML SYR SUBCUT SCH (17:00)
[2021-12-19] MEDS: CEFTRIAXONE 1,000 MG in DEXTROSE 5% WATER 50 ML IV SCH (17:00)
[2021-12-20 00:25] VITALS: BP 112/60
[2021-12-20 04:00] VITALS: BP_SYST 137; BP_DIAS 116; BP_DIAS 96
[2021-12-20 08:00] VITALS: BP 147/78
[2021-12-20] MEDS: FAMOTIDINE 20MG TABLET PO SCH (10:30)
[2021-12-20 12:00] VITALS: BP 127/73
== END 2021-12-20 16:00 | DRG 871 ==
LOC: ER 12:32 → 7WST 15:16 → EDBEDREQTM 15:19 → EDBEDREQ 15:19 → SUPCPDRO 15:53 → 7WST 18:50
PROVIDERS: ADMIT Internal Medicine; ATTEND Internal Medicine
DX: A41.9 Sepsis, unspecified organism (principal); E43 Unspecified severe protein-calorie malnutrition; G92.8 Other toxic encephalopathy; J18.9 Pneumonia, unspecified organism; Z20.822 Contact with and (suspected) exposure to COVID-19; D63.8 Anemia in other chronic diseases classified elsewhere; R74.01 Elevation of levels of liver transaminase levels; I50.9 Heart failure, unspecified; I11.0 Hypertensive heart disease with heart failure; Z68.28 Body mass index [BMI] 28.0-28.9, adult
CPT/HCPCS: 36415; 71045; 80053; 80061; 80320; 82607; 82746; 83036; 83540; 83550; 83605; 83880; 84145; 84439; 84443; 84484; 85025; 87426; 93005; 93306; 93970; 97162; 97165; 99285; C9803; J0456; J0696; J1650; J1885; J7060; G0480